=== PATIENT | male | born 1960 | race African-American/Black ===

== ENCOUNTER 2022-04-02 09:14 | Emergency (ER) | payer OTHER, SELFPAY ==
--- NOTE | ~2022-04-02 | CT_ITS ---
EXAMINATION: CT SCAN TIBIA-FIBULA NONCONTRASTED STUDY. CLINICAL INFORMATION: Pain COMPARISON: None TECHNIQUE: Computed axial tomographic sections performed FINDINGS: Bones: Distal femur, patella, tibia, fibula, included talus and portion of the calcaneus included the images are intact. No fracture. No periosteal reaction, no osteolytic or osteoblastic lesion found. Joints: Narrowing of medial joint space of the knee suggests underlying degenerative osteoarthritis. Ankle mortise is preserved. Talar dome is intact. Medial and lateral malleoli are normal. Bone alignments are satisfactory. Soft tissue: Surrounding soft tissue muscles and subcutaneous fat are normal. No loculated fluid collection or abscess. Visualization of soft tissue on the noncontrast CT scan however is limited, if there is clinical suspicion for possible soft tissue derangement including myositis and/or soft tissue derangements, this may require evaluation with MRI. CT/CT lower leg LT wo con IMPRESSION: *Tibia and fibula are intact. No fracture or dislocation. 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 *No loculated the fluid collection or abscess. *Visualization of the soft tissue is limited on CT scan, if there is a clinical suspicion for possible soft tissue derangements including tendinosis and/or tears, MRI could be utilized for further investigation.
[2022-04-02 09:18] VITALS: BP 166/92; PULSE 68; O2SAT 100
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
[2022-04-02 09:26] VITALS: BP 169/82; PULSE 56; RESP 18; TEMP 37.2; O2SAT 100; BMI 25.8
[2022-04-02] MEDS: Cyclobenzaprine HCl 10 MG TABLET PO (09:35)
[2022-04-02] MEDS: Ketorolac Tromethamine 30 MG/ML VIAL IM (09:35)
[2022-04-02 11:16] VITALS: RESP 18
== END 2022-04-02 11:59 | disposition home or self-care (01) ==
PROVIDERS: Physician Assistant Medical; Emergency Provider Emergency Medicine
DX: S89.92XA Unspecified injury of left lower leg, initial encounter (principal); V03.00XA Pedestrian on foot injured in collision with car, pick-up truck or van in nontraffic accident, initial encounter; Y93.9 Activity, unspecified; Y92.410 Unspecified street and highway as the place of occurrence of the external cause; Y99.9 Unspecified external cause status
CPT/HCPCS: 36415; 73700; 82550; 82552; 96372; 99283; 99284; J1885